=== PATIENT | male | born 1965 | race Caucasian/White ===

== ENCOUNTER 2021-03-16 09:20 | Outpatient (CLI) | payer BC | END 2021-03-16 09:21 | disposition home or self-care (01) | LOC: CSHULT 09:20 | PROVIDERS: ATTEND Internal Medicine Gastroenterology | DX: R47.02 Dysphasia (principal); K30 Functional dyspepsia; R10.11 Right upper quadrant pain; K59.09 Other constipation; R14.0 Abdominal distension (gaseous); K82.8 Other specified diseases of gallbladder; C78.7 Secondary malignant neoplasm of liver and intrahepatic bile duct | CPT/HCPCS: 76705 ==